=== PATIENT | male | born 2000 | race Caucasian/White ===

== ENCOUNTER 2023-06-04 16:30 | Outpatient (CLI) | payer OTHER ==
[2023-06-05 02:30] LABS: CHLAMYDIA TRACHOMATIS DNA NEGATIVE (NEGATIVE); NEISSERIA GONORRHOEAE DNA NEGATIVE (NEGATIVE); TRICHOMONAS VAGINALIS DNA NEGATIVE (NEGATIVE)
[2023-06-06 03:09] LABS: HCV AB Non Reactive (Non Reactive); HIV SCREEN 4TH GENERATION Non Reactive (Non Reactive)
[2023-06-06 04:09] LABS: HSV 1 IGG TYPE SPEC <0.91 index (0.00-0.90); HSV 2 IGG TYPE SPEC <0.91 index (0.00-0.90)
[2023-06-06 06:09] LABS: RPR Non Reactive (Non Reactive)
== END 2023-06-04 16:45 | disposition home or self-care (01) ==
LOC: LAB.N 16:30
PROVIDERS: ATTEND Family Medicine
DX: Z11.3 Encounter for screening for infections with a predominantly sexual mode of transmission (principal)
CPT/HCPCS: 36415; 86592; 86695; 86696; 86803; 87389; 87491; 87591; 87661

== ENCOUNTER 2023-06-26 11:45 | Outpatient (CLI) | payer OTHER ==
[2023-06-26 19:55] LABS: INFLUENZA A- RESP PCR PANEL NOT DETECTED; INFLUENZA B - RESP PCR PANEL NOT DETECTED; RSV- RESP PCR PANEL NOT DETECTED; SARS-CoV-2 -RESP PCR PANEL NOT DETECTED
== END 2023-06-26 12:00 | disposition home or self-care (01) ==
LOC: LAB.N 11:45
PROVIDERS: ATTEND Physician Assistant Medical
DX: Z20.822 Contact with and (suspected) exposure to COVID-19 (principal)
CPT/HCPCS: 87637

== ENCOUNTER 2023-06-28 08:00 | Outpatient (CLI) | payer OTHER | END 2023-06-28 23:59 | disposition home or self-care (01) | LOC: LAB.N 08:00 | PROVIDERS: ATTEND Family Medicine | DX: J02.9 Acute pharyngitis, unspecified (principal) | CPT/HCPCS: 87070 ==